=== PATIENT | female | born 1955 | race Caucasian/White ===

== ENCOUNTER → 2024-02-15 17:30 | Outpatient (REF) | payer MEDICARE, BC, SELFPAY | LOC: WDC 17:30 | PROVIDERS: ATTENDING PHYSICIAN Family Medicine | DX: Z12.31 Encounter for screening mammogram for malignant neoplasm of breast (principal) | CPT/HCPCS: 77063; 77067 ==

== ENCOUNTER → 2025-02-08 17:28 | Outpatient (REF) | payer MEDICARE, BC, SELFPAY | LOC: WDC 17:28 | PROVIDERS: ATTENDING PHYSICIAN Family Medicine | DX: Z12.31 Encounter for screening mammogram for malignant neoplasm of breast (principal) | CPT/HCPCS: 77063; 77067 ==